=== PATIENT | female | born 1985 | race Two or more races ===

== ENCOUNTER 2017-11-29 12:56 | Emergency (ER) | payer MEDICAID ==
[~2017-11-29] VITALS: Ht 170.2 cm; Wt 97.5 kg
[2017-11-29 13:32] LABS: Basophils # (auto) 0.1 uL; Basophils % (auto) 0.8 % (0.0-2.0); Eosinophils # (auto) 0.1 uL; Eosinophils % (auto) 1.6 % (0.0-7.0); Hematocrit 38.5 % (36.0-46.0); Hemoglobin 12.7 g/dL (12.2-16.2); Lymphocytes # (auto) 2.2 uL; Lymphocytes % (auto) 31.5 % (10.0-50.0); Mean Corpuscular Hemoglobin 27.7 pg (28.0-32.0); Mean Corpuscular Hgb Conc. 32.9 g/dL (32.0-36.0); Mean Corpuscular Volume 84.1 fL (80.0-100.0); Monocytes # (auto) 0.4 uL; Monocytes % (auto) 6.4 % (0.0-12.0); Neutrophils # (auto) 4.1 uL; Neutrophils % (auto) 59.7 % (37.0-80.0); Platelet Count (auto) 203 10^3/uL (140-450); Red Blood Cells 4.58 10^6/uL (4.0-5.20); Red Cell Distribution Width 13.6 % (11.8-14.3); White Blood Cell 6.9 10^3/uL (4.4-10.8)
[2017-11-29 13:58] LABS: Urine WBC None Seen /hpf (0 - 5)
[2017-11-29 14:12] LABS: Albumin 3.7 g/dL (3.4-5.0); BUN/Creatinine Ratio 12.5; Bilirubin, Total 0.4 mg/dL (0.2-1.0); Calcium 8.7 mg/dL (8.5-10.1); Magnesium 2.2 mg/dL (1.6-2.6); Potassium 3.8 mmol/L (3.5-5.1); Total Protein 7.5 g/dL (6.4-8.2)
[2017-11-29 14:18] LABS: Urine Bacteria FEW /hpf (None Seen); Urine Blood 1+ /uL (Negative); Urine Mucus FEW (None Seen); Urine Specific Gravity 1.018 (1.001-1.035)
[2017-11-29] MEDS ORDERED: LIDOCAINE VISCOUS 2% 15ML UD PO ONE (15:15)
[2017-11-29] MEDS ORDERED: DONNATAL 5ml ORAL Elix (BELLADONNA ALK-PHENOBARB) PO ONE (15:15)
[2017-11-29] MEDS ORDERED: ALUM & MAG HYDROX-SIMETH LIQ(MAALOX) 30 ML PO ONE (15:15)
[2017-11-29 16:42] VITALS: BP 121/83
== END 2017-11-29 16:46 | disposition home or self-care (01) ==
LOC: ER 12:56
DX: K29.70 Gastritis, unspecified, without bleeding (principal)
CPT/HCPCS: 36415; 80053; 81001; 81025; 82150; 83690; 83735; 85025

== ENCOUNTER 2018-11-10 13:59 | Inpatient (IN) | payer MEDICAID ==
[~2018-11-10] VITALS: Ht 170.2 cm; Wt 101.5 kg
[2018-11-10 11:45] VITALS: BP 116/74
[2018-11-10 15:13] LABS: Albumin 3.4 g/dL (3.4-5.0); Calcium 8.4 mg/dL (8.5-10.1)
[2018-11-10 15:16] LABS: BUN/Creatinine Ratio 10.6; Bilirubin, Total 0.3 mg/dL (0.2-1.0); Total Protein 6.6 g/dL (6.4-8.2)
[2018-11-10 15:30] LABS: INR 0.93 (0.9-1.15); Partial Thromboplastin Time 21.4 sec (23.64-32.05)
[2018-11-10 16:30] LABS: Basophils # (auto) 0 uL; Lymphocytes # (auto) 1.4 uL; Monocytes # (auto) 0.4 uL
[2018-11-10 16:32] LABS: Basophils % (auto) 0.5 % (0.0-2.0); Eosinophils # (auto) 0 uL; Eosinophils % (auto) 0.5 % (0.0-7.0); Hematocrit 19.8 % (36.0-46.0); Lymphocytes % (auto) 17.1 % (10.0-50.0); Mean Corpuscular Hemoglobin 22.4 pg (28.0-32.0); Mean Corpuscular Hgb Conc. 30.6 g/dL (32.0-36.0); Mean Corpuscular Volume 73.3 fL (80.0-100.0); Monocytes % (auto) 5.4 % (0.0-12.0); Neutrophils # (auto) 6.1 uL; Neutrophils % (auto) 76.5 % (37.0-80.0); Platelet Count (auto) 283 10^3/uL (140-450)
[2018-11-10 16:42] LABS: Red Cell Distribution Width 21.3 % (11.8-14.3)
[2018-11-10] MEDS ORDERED: HYDROcodone-ACET 5/325MG TAB PO ONE (19:45)
[2018-11-10] MEDS ORDERED: SODIUM CHLORIDE 0.9% 1,000 ML IV ONE (19:45)
[2018-11-10] MEDS ORDERED: TEMAZEPAM 15 MG CAP PO PRN (20:45)
[2018-11-10] MEDS ORDERED: HYDROcodone-ACET 5/325MG TAB PO PRN (20:45)
[2018-11-10] MEDS ORDERED: ACETAMINOPHEN 325 MG TAB PO PRN (20:45)
[2018-11-10] MEDS ORDERED: ONDANSETRON HCL 4 MG/2 ML VIAL IV PRN (20:45)
[2018-11-10 20:55] VITALS: BP 116/67
[2018-11-10 21:15] VITALS: BP 107/69
[2018-11-10] MEDS: FAMOTIDINE 20 MG TAB PO SCH (22:00)
[2018-11-10 23:19] VITALS: BP 119/66
[2018-11-11] VITALS (14 sets, daily range): BP systolic 90–116; BP diastolic 52–74
--- NOTE | 2018-11-11 | NUR ---
MS admit from [facility] admitted to tele/MS after SBAR received. Patient oriented to BRANDON CAMACHO RN primary RN, unit, room, bed, and unit policies regarding patient care and visiting hours. Patient weighed by bedscale and encouraged to call if they need something. All questions and concerns addressed, patient verbalized understanding. Note: Patient is alert and oriented x 4, appears pale, c/o slight dizziness when took a few steps from gurney to bed, vital signs are stable, encouraged to call for assist when in need to go to bathroom to prevent fall or injury, instructed about follow up H&H blood draw post blood transfusion, patient is still having heavy vaginal bleeding, will keep monitoring.
--- NOTE | 2018-11-11 | NUR ---
PATIENT DOES NOT TAKE ANY MEDICATIONS AT HOME.
[2018-11-11 00:45] LABS: Hematocrit 20.2 % (36.0-46.0)
[2018-11-11 00:49] LABS: Hemoglobin 6.5 g/dL (12.2-16.2)
--- NOTE | 2018-11-11 00:55 | NUR ---
CRITICAL LAB Paged hospitalist regarding patient's latest H&H of 6.5, awaiting for call back.
--- NOTE | 2018-11-11 02:21 | NUR ---
BLOOD TRANSFUSION STARTED, PER HOSPITALIST WILL TRANSFUSE 1 UNIT PRBC.
--- NOTE | 2018-11-11 04:48 | NUR ---
1 UNIT PRBC TRANSFUSED, NO REACTIONS NOTED, VITAL SIGNS ARE STABLE, RECHECK H&H AT 0600
[2018-11-11 07:26] LABS: Basophils # (auto) 0.1 uL; Eosinophils # (auto) 0.1 uL; Eosinophils % (auto) 0.9 % (0.0-7.0); White Blood Cell 7.4 10^3/uL (4.4-10.8)
[2018-11-11 07:28] LABS: Basophils % (auto) 0.7 % (0.0-2.0); Hematocrit 22.4 % (36.0-46.0); Hemoglobin 7.3 g/dL (12.2-16.2); Lymphocytes # (auto) 2.4 uL; Lymphocytes % (auto) 32.4 % (10.0-50.0); Mean Corpuscular Hemoglobin 25.4 pg (28.0-32.0); Mean Corpuscular Hgb Conc. 32.6 g/dL (32.0-36.0); Mean Corpuscular Volume 78.1 fL (80.0-100.0); Monocytes # (auto) 0.4 uL; Monocytes % (auto) 5.8 % (0.0-12.0); Neutrophils # (auto) 4.4 uL; Neutrophils % (auto) 60.2 % (37.0-80.0); Platelet Count (auto) 229 10^3/uL (140-450); Red Blood Cells 2.87 10^6/uL (4.0-5.20)
[2018-11-11 07:57] LABS: BUN/Creatinine Ratio 15.9; Calcium 7.7 mg/dL (8.5-10.1); Potassium 3.9 mmol/L (3.5-5.1)
[2018-11-11 08:48] LABS: Red Cell Distribution Width 22.3 % (11.8-14.3)
[2018-11-11] MEDS: FAMOTIDINE 20 MG TAB PO SCH ×2 (10:13→21:03)
[2018-11-11] MEDS: FERROUS SULFATE 325 MG TAB PO SCH (18:58)
--- NOTE | 2018-11-11 19:24 | NUR ---
75 ML OUT OF THE ANDREINA MURPHY Addendum: 11/12/18 at 0750 by Raman Blakely RN WRONG PATIENT PLEASE DISREGARD
--- NOTE | 2018-11-11 20:46 | NUR ---
1 UNIT PRBC TRANSFUSION STARTED.
--- NOTE | 2018-11-11 23:56 | NUR ---
BLOOD TRANSFUSION DONE, NO REACTION TO BLOOD, V/S STABLE.
[2018-11-12] VITALS (12 sets, daily range): BP systolic 95–132; BP diastolic 48–76
--- NOTE | 2018-11-12 | NUR ---
Opening Shift Note Assumed care of patient, awake and alert, oriented x 4. On room air with even and unlabored respirations. No S/S of distress/SOB. Instructed on POC and to call for assist PRN, will continue to monitor for changes Q1hr and PRN. Addendum: 11/13/18 at 0342 by Sherine Markham RN RN wrong time
[2018-11-12 05:52] LABS: Eosinophils # (auto) 0.1 uL; Hemoglobin 7.8 g/dL (12.2-16.2); Mean Corpuscular Volume 78.6 fL (80.0-100.0); Monocytes # (auto) 0.5 uL; Nucleated Red Blood Cells % 0.2 %
[2018-11-12 05:55] LABS: Basophils # (auto) 0.1 uL; Eosinophils % (auto) 1.6 % (0.0-7.0); Lymphocytes # (auto) 2.1 uL; Lymphocytes % (auto) 30.2 % (10.0-50.0); Mean Corpuscular Hemoglobin 25.6 pg (28.0-32.0); Mean Corpuscular Hgb Conc. 32.6 g/dL (32.0-36.0); Monocytes % (auto) 7.1 % (0.0-12.0); Neutrophils # (auto) 4.2 uL; Neutrophils % (auto) 60.1 % (37.0-80.0); Platelet Count (auto) 233 10^3/uL (140-450); Red Blood Cells 3.05 10^6/uL (4.0-5.20)
[2018-11-12 06:01] LABS: Red Cell Distribution Width 21.6 % (11.8-14.3)
[2018-11-12] MEDS: FERROUS SULFATE 325 MG TAB PO SCH ×3 (10:22→17:51)
[2018-11-12] MEDS: FAMOTIDINE 20 MG TAB PO SCH ×2 (10:23→22:09)
[2018-11-12] MEDS: medroxyPROGESTERone ACETATE 5 MG TAB PO SCH (10:23)
--- NOTE | 2018-11-12 18:11 | NUR ---
PATIENT WENT HOME FEELING VERY WELL VITAL SIGNS IN NORMAL LIMITS ALL DC INSTRUCTION GAVE TO THE PATIENT VITAL SIGNS IN NORMAL LIMITS Addendum: 11/12/18 at 1818 by Raman Blakely RN WRONG PATIENT [place]
--- NOTE | 2018-11-12 19:55 | NUR ---
Opening Shift Note Assumed care of patient, awake and alert, oriented x 4. On room air with even and unlabored respirations. No S/S of distress/SOB. Instructed on POC and to call for assist PRN, will continue to monitor for changes Q1hr and PRN.
[2018-11-13 05:00] VITALS: BP 99/61
--- NOTE | 2018-11-13 07:00 | NUR ---
Closing Note patient resting in bed with even and unlabored respirations, no s/s of distress or pain. Endorsed care to day shift RN.
--- NOTE | 2018-11-13 07:10 | NUR ---
OPENING SHIFT NOTE ASSUMED CARE OF PATIENT. PATIENT IS A&OX4, AMBULATORY INDEPENDENTLY WITH STEADY GAIT. PATIENT STATES SHE DOES HAVE SOME NOTED BLEEDING STILL AT THIS TIME, DENIES ANY PAIN. EDUCATED PATIENT ON USE OF CALL LIGHT PRN, PATIENT VERBALIZED UNDERSTANDING. NO CURRENT S/S OF DISTRESS NOTED AT THIS TIME, CONTINUING TO MONITOR Q1 HR.
[2018-11-13] MEDS: FAMOTIDINE 20 MG TAB PO SCH (08:51)
[2018-11-13] MEDS: FERROUS SULFATE 325 MG TAB PO SCH ×2 (08:51→11:22)
[2018-11-13] MEDS: medroxyPROGESTERone ACETATE 5 MG TAB PO SCH (08:51)
[2018-11-13 09:00] VITALS: BP 114/64
[2018-11-13 12:53] LABS: Basophils # (auto) 0.1 uL; Eosinophils # (auto) 0.2 uL; Eosinophils % (auto) 2.4 % (0.0-7.0); Hemoglobin 8.7 g/dL (12.2-16.2); Monocytes # (auto) 0.5 uL; Neutrophils # (auto) 4.9 uL; Nucleated Red Blood Cells % 0.2 %
[2018-11-13 12:55] LABS: Basophils % (auto) 0.7 % (0.0-2.0); Hematocrit 27.1 % (36.0-46.0); Mean Corpuscular Hemoglobin 25.7 pg (28.0-32.0); Mean Corpuscular Hgb Conc. 32.2 g/dL (32.0-36.0); Mean Corpuscular Volume 79.7 fL (80.0-100.0); Neutrophils % (auto) 63.9 % (37.0-80.0); Platelet Count (auto) 257 10^3/uL (140-450); Red Cell Distribution Width 21.1 % (11.8-14.3); White Blood Cell 7.6 10^3/uL (4.4-10.8)
[2018-11-13 13:00] VITALS: BP 117/61
[2018-11-13 14:06] VITALS: BP 117/61
--- NOTE | 2018-11-13 16:04 | NUR ---
patient discharge iv dc'd, catheter intact. patient tolerated well. arm bands removed. patient given education and follow up information. patient ambulated out with family. no s/s of distress noted
== END 2018-11-13 16:08 | disposition home or self-care (01) | DRG 532 ==
LOC: EDBD 13:59 → ER 14:06 → OVERFLOW 20:37 → WEST WING 23:24
PROVIDERS: ADMIT Nurse Practitioner; ATTEND Specialist
PROC: 30233N1 Transfusion of Nonautologous Red Blood Cells into Peripheral Vein, Percutaneous Approach (ICD-10-PCS; principal; 2018-11-10)
DX: N93.8 Other specified abnormal uterine and vaginal bleeding (principal); D62 Acute posthemorrhagic anemia; N88.8 Other specified noninflammatory disorders of cervix uteri; N83.209 Unspecified ovarian cyst, unspecified side; E66.9 Obesity, unspecified; Z68.35 Body mass index [BMI] 35.0-35.9, adult
CPT/HCPCS: 36415; 36430; 76830; 76856; 80048; 80053; 84443; 84702; 85014; 85018; 85025; 85610; 85730; 86850; 86900; 86901; 86920; 94761; 96360; 99291; G0378; J2405

== ENCOUNTER 2021-04-29 12:44 | Emergency (ER) | payer MEDICAID ==
[~2021-04-29] VITALS: Ht 170.2 cm; Wt 90.7 kg
[2021-04-29 13:51] VITALS: BP 139/64
[2021-04-29 15:08] LABS: Urine Bacteria NONE SEEN /hpf (None Seen); Urine Blood 1+ /uL (Negative); Urine Mucus FEW (None Seen); Urine Specific Gravity 1.029 (1.001-1.035); Urine WBC 1 /hpf (0 - 5)
[2021-04-29] MEDS ORDERED: IBUP800T27 PO (16:08)
== END 2021-04-29 16:15 | disposition home or self-care (01) ==
LOC: ER 12:44
DX: N83.202 Unspecified ovarian cyst, left side (principal); N80.0 Endometriosis of uterus; Z32.02 Encounter for pregnancy test, result negative
CPT/HCPCS: 76830; 76856; 81001; 81025